=== PATIENT | male | born 1955 | race Caucasian/White ===

== ENCOUNTER → 2016-12-01 | Outpatient (CLI) | payer OTHER ==
[~2016-12-01] MED LIST: BENICAR HCT 12.1 TA4 PO; CELEXA20 MG PO; CO Q-1050 MG PO; FISH OIL 10001000 MG PO; NORFLEX100 MG PO; RED YEAST RICE600 MG PO; VICODIN ES 7501 TAB PO
[2016-12-01 08:59] LABS: BILIRUBIN NEGATIVE (NEGATIVE); BLOOD NEGATIVE (NEGATIVE); CLARITY CLEAR (CLEAR); COLOR YELLOW (YELLOW); GLUCOSE NEGATIVE (NEGATIVE); KETONE NEGATIVE (NEGATIVE); LEUKO ESTERASE NEGATIVE (NEGATIVE); NITRITE NEGATIVE (NEGATIVE); PH 5.5 (5.0-9.0); SPECIFIC GRAVITY 1.025 (1.005-1.030); UROBILINOGEN 0.2 E.U./dl (0.2-1.0)
[2016-12-01 09:14] LABS: BACTERIA TRACE; EPITHELIAL CELLS 0-2; MUCOUS 2+; WBC 0-2 wbc/hpf (0-5)
[2016-12-01 09:33] LABS: ALBUMIN 3.8 gm/dl (3.1-4.5); BASO % 0.8 % (0.0-1.0); BUN 19 mg/dl (7-24); CHLORIDE 104 mmol/L (98-107); EOS # 0.1 10*3/uL (0.0-0.4); EOS % 3.5 % (1.0-4.0); HEMATOCRIT 43.1 % (42.0-52.0); HEMOGLOBIN 14.9 g/dl (14.0-18.0); LYMPH # 0.9 10*3/uL (1.3-4.4); MEAN CELL VOLUME 89.8 fl (80.0-94.0); MEAN CORPUSCULAR HGB CONC 34.6 g/dl (33.0-37.0); MEAN PLATELET VOLUME 10.8 fl (9.6-12.3); MONO # 0.3 10*3/uL (0.1-1.0); MONO % 8.9 % (3.0-9.0); NEUT # 2.3 10*3/uL (2.3-7.9); PLATELET COUNT AUTOMATED 158 10*3/uL (130-400); POTASSIUM 3.9 mmol/L (3.5-5.1); RED CELL DISTRI WIDTH 12.3 % (0-14.5); SODIUM 139 mmol/L (136-145); WHITE BLOOD COUNT 3.7 10*3/uL (4.8-10.8)
[2016-12-01 09:46] LABS: ALKALINE PHOSPHATASE 84 U/L (45-117); CHOLESTEROL 265 mg/dL (<200); CREATININE 1.09 mg/dL (0.70-1.30); HDL CHOLESTEROL 55 mg/dl (40-60); LDL CHOLESTEROL 172 mg/dL (9-159); SGOT/AST 26 IU/L (3-35); SGPT/ALT 33 U/L (12-78); TOTAL PROTEIN 7.2 gm/dL (6.4-8.2); TRIGLYCERIDES 188 mg/dl (<150); VLDL CHOLESTEROL 38 mg/dL (6-40)
== END | disposition home or self-care (01) ==
LOC: LAB 08:25
DX: Z12.5 Encounter for screening for malignant neoplasm of prostate (principal); I10 Essential (primary) hypertension

== ENCOUNTER → 2017-08-27 | Outpatient (CLI) | payer OTHER | END | disposition home or self-care (01) | LOC: RAD 14:25 | DX: M25.662 Stiffness of left knee, not elsewhere classified (principal); M25.462 Effusion, left knee ==